=== PATIENT | female | born 1970 ===

== ENCOUNTER → 2018-09-04 23:28 | Outpatient (REF) | payer OTHER, SELFPAY ==
[2018-09-05 01:49] LABS: Erythrocyte Sedimentation Rate 4 MM/HR (0-20)
== END ==
LOC: LAB 23:28
PROVIDERS: Visit Provider Specialist
DX: Z00.00 Encounter for general adult medical examination without abnormal findings (principal); R10.9 Unspecified abdominal pain; E03.9 Hypothyroidism, unspecified
CPT/HCPCS: 85651